=== PATIENT | female | born 1985 | race Caucasian/White ===

== ENCOUNTER 2019-12-26 11:30 | Outpatient (CLI) | payer OTHER ==
--- NOTE | 2019-12-27 03:08 | XRAY Report ---
Reason: CHRONIC LT CALCANEUS PAIN Procedure Date: 12/26/2019 Accession Number: [id number] / [id number] Procedure: XR - Calcaneus LT CPT Code: Final Report FULL RESULT: EXAM: LEFT CALCANEUS RADIOGRAPHY EXAM DATE: 12/26/2019 11:38 AM. CLINICAL HISTORY: CHRONIC LT CALCANEUS PAIN. COMPARISON: None. TECHNIQUE: 2 views. FINDINGS: Bones: Inferior and posterior calcaneal spurs. Ossicle at the midfoot may reflect an os peroneum. No fractures or bone lesions. Joints: Normal. No subluxations. Soft Tissues: Normal. No soft tissue swelling. IMPRESSION: Calcaneal spurs. Otherwise, normal calcaneus radiography. [facility]
== END 2019-12-26 11:31 | disposition home or self-care (01) ==
LOC: DI 11:30
PROVIDERS: ATTEND Podiatrist
DX: M77.32 Calcaneal spur, left foot (principal)

== ENCOUNTER 2023-02-24 08:15 | Outpatient (CLI) | payer OTHER | END 2023-02-24 08:30 | disposition home or self-care (01) | LOC: LAB.N 08:15 | PROVIDERS: ATTEND Specialist | DX: R30.0 Dysuria (principal) | CPT/HCPCS: 87086 ==

== ENCOUNTER 2023-04-16 16:00 | Outpatient (CLI) | payer OTHER | END 2023-04-16 23:59 | disposition short-term general hospital (02) | LOC: EMS 16:00 | DX: R06.4 Hyperventilation (principal); R11.0 Nausea; G24.9 Dystonia, unspecified; R47.02 Dysphasia | CPT/HCPCS: A0425; A0427 ==

== ENCOUNTER 2023-09-02 09:15 | Outpatient (CLI) | payer BC, OTHER | END 2023-09-02 09:30 | disposition home or self-care (01) | LOC: LAB.N 09:15 | PROVIDERS: ATTEND Nurse Practitioner | DX: R30.0 Dysuria (principal) | CPT/HCPCS: 87086 ==